=== PATIENT | female | born 1980 | race Caucasian/White ===

== ENCOUNTER → 2025-07-22 08:04 | Outpatient (CLI) | payer OTHER, SELFPAY ==
--- NOTE | 2025-07-22 | PATH_ITS ---
Note [facility] Accession Number: [id number] TESTS RESULT FLAG UNITS REF RANGE LAB Clinician Provided Cytology Information No. of containers..01 Other (Miscellaneous) No. of containers..02 Previously Prepared Cytology Slide Source: LEFT THYRIOD DIAGNOSIS: LEFT THYROID NODULE, FINE NEEDLE ASPIRATION. NEGATIVE FOR MALIGNANT CELLS. ADEQUATE FOR EVALUATION. COLLOID AND FOLLICULAR GROUPS ARE PRESENT. FAVOR BENIGN FOLLICULAR (GOITEROUS) NODULE ([place] CATEGORY II), SEE COMMENT. COMMENT: MICROSCOPIC EXAMINATION REVEALS A MILDLY CELLULAR ASPIRATE, COMPOSED OF COLLOID, FOLLICULAR GROUPS WITH HURTHLE CELL-LIKE CHANGES, WITHOUT SIGNIFICANT CYTOLOGIC OR ARCHITECTURAL ATYPIA, AND BACKGROUND MACROPHAGES. THESE FINDINGS FAVOR A BENIGN FOLLICULAR (GOITEROUS) NODULE. CORRELATION WITH CLINICAL AND RADIOGRAPHIC FINDINGS IS RECOMMENDED. ACCORDING TO THE [place] REPORTING SYSTEM FOR THYROID CYTOPATHOLOGY, THE RISK OF MALIGNANCY IN THE CATEGORY BENIGN-CATEGORY II IS 0-3%; THEREFORE RECOMMEND CONTINUED ULTRASOUND SURVEILLANCE WITH REPEAT FNA IF THE NODULE SIGNIFICANTLY INCREASES IN SIZE. Pathologist ICD10: 01 E04.1 Signed out by: Sejal Duffy MD, Pathologist NPI- [id number] Performed by: Mirta Alexis, [employer] ([facility]) Gross description: 30 CC, COLORLESS, CLEAR RECIEVED: IN CYTOLYT WITH 6 ALCOHOL FIXED AND 6 STAINED SLIDES 1 RNA WILL BE EXPRIE ON 09/13/2026. PETER /KULWANT 07/23/2025 1444 [facility] FLAG LEGEND: L-Low Normal,H-High Normal,LL-Alert Low,HH-Alert High <-Panic Low,>-Panic High,A-Abnormal,AA-Critical Abnormal Performed at: 01 [address], [place] [address] Adam Cleveland MD, Performed at: [address] [address], [place], [place] [id number] MD Adam Cleveland MD Phone: [phone]
--- NOTE | 2025-07-22 08:07 | DI.US.S_ITS ---
PROCEDURE: US FINE NEEDLE ASPIRATION INDICATIONS: thyroid nodule TECHNIQUE: The indications, alternatives, benefits, risks, and complications of the procedure were explained to the patient. Written informed consent was obtained and placed in the chart. The thyroid region was examined sonographically and a site was chosen for ultrasound guided percutaneous sampling. The skin was prepared and draped in the usual fashion, and anesthetized with 1% lidocaine infiltrated from the skin down to the thyroid gland. Multiple passes were then performed, with contents emptied into an appropriate pathology specimen container. A bandage was applied to the area of access at completion of the study. COMPARISON: Outside Facility, US, US SOFT TISSUE HEAD AND NECK, 05/30/2025, 16:02. FINDINGS: Location(s) of lesion(s) sampled: Left upper to mid lobe thyroid nodule [place]: 25 gauge hypodermic needles. Number of passes: 6 Medications: 1% lidocaine for local anaesthesia. Complications: None. IMPRESSION: Successful ultrasound-guided thyroid nodule fine needle aspiration, with cytology results pending. Please see chart below for management recommendations based on cytology results. [place] [facility] ReportingRecommendationsNon-diagnostic* Repeat US-guided FNA, with on-site cytology evaluation if possible. * Repeated non-diagnostic nodules without high suspicion US features: close observation vs surgical consult. * Consider surgery if nodule has high suspicion US features, grows >20% in 2 dimensions on followup, or patient has clinical risk factors for malignancy. Benign* If nodule has high suspicion US features: repeat US and FNA within 12 months. * If nodule has low to intermediate suspicion US features: repeat US at 12-24 months. If nodule grows (20% increase in at least 2 dimensions, with minimal increase of 2 mm or >50% change in volume), or development of new suspicious US features, then repeat FNA or continue followup. * If nodule has very low suspicion US features: followup US at >24 months. Atypia of undetermined significance, follicular lesion of undetermined significanceRepeat FNA, molecular testing, followup US, or surgical consult.Follicular neoplasm, suspicious for follicular neoplasmSurgical consult; also consider molecular testing. Suspicious for malignancySurgical consult.MalignantSurgical consult. Dictated by: Edgard Mistry M.D. on 07/22/2025 at 10:58 Approved by: Edgard Mistry M.D. on 07/22/2025 at 10:58
== END ==
PROVIDERS: PCP Physician Assistant; Referring Provider Otolaryngology; Visit Provider Otolaryngology
DX: E04.1 Nontoxic single thyroid nodule (principal)
CPT/HCPCS: 10005; 76830